=== PATIENT | male | born 1985 | race Caucasian/White ===

== ENCOUNTER 2019-07-14 10:03 | Inpatient (IN) ==
[2019-07-14] MEDS ORDERED: MOTRIN PO PRN (10:10)
[2019-07-14] MEDS ORDERED: LIBRIUM PO PRN (10:10)
[2019-07-14] MEDS ORDERED: IMODIUM PO PRN (10:10)
[2019-07-14] MEDS ORDERED: ZOFRAN IV PRN (10:10)
[2019-07-14] MEDS ORDERED: MAALOX PLUS LIQUID PO PRN (10:10)
[2019-07-14] MEDS ORDERED: ATARAX PO PRN (10:10)
[2019-07-14] MEDS ORDERED: DULCOLAX PR PRN (10:10)
[2019-07-14] MEDS ORDERED: PHENOBARBITAL IV PRN (10:10)
[2019-07-14] MEDS ORDERED: ZOFRAN ODT PO PRN (10:10)
[2019-07-14] MEDS ORDERED: TUBERSOL ID ONE (10:10)
[2019-07-14] MEDS ORDERED: SENOKOT PO PRN (10:10)
[2019-07-14] MEDS ORDERED: SEROQUEL PO PRN (10:10)
[2019-07-14] MEDS ORDERED: ROBAXIN PO PRN (10:10)
[2019-07-14] MEDS ORDERED: SINEMET 25/100 PO PRN (10:10)
[2019-07-14] MEDS ORDERED: BENTYL PO PRN (10:10)
[2019-07-14] MEDS ORDERED: D5W 1,000 ML IV PRN (10:10)
[2019-07-14] MEDS ORDERED: TYLENOL PO PRN (10:10)
[2019-07-14 10:29] LABS: HEMATOCRIT 46.7 % (42.0-52.0); HEMOGLOBIN 15.6 g/dL (14.0-18.0); MCH 29.1 PG (27-31); MCHC 33.4 g/dL (33-37); MPV 10.2 FL (7.4-10.4); RBC 5.37 XMIL (4.7-6.1); RDW 13.7 % (11.5-14.5); WBC 7.73 X1000 (4.8-10.8)
[2019-07-14 10:46] LABS: AGAP 13; ALBUMIN 4.6 g/dL (3.5-5.0); ALKALINE PHOSPHATASE 78 U/L (32-122); BUN 18 mg/dL (8-22); CALCIUM 10.5 mg/dL (8.8-10.2); CHLORIDE 103 mmol/L (98-107); COSMO 278; CREATININE 0.8 mg/dL (0.7-1.2); ESTIMATED GFR > 60; GLUCOSE 108 mg/dL (70-104); GOT 12 U/L (10-34); GPT 11 U/L (10-44); POTASSIUM 4.1 mmol/L (3.5-5.1); SODIUM 138 mmol/L (136-145); TCO2 23 mmol/L (25-35); TOTAL PROTEIN 7.8 g/dL (6.3-8.3)
[2019-07-14 10:50] LABS: INR 0.95; PROTIME 13.2 Seconds (11.0-16.0)
[2019-07-14 10:57] LABS: AMYLASE 35 U/L (20-200); LIPASE 31 U/L (13-60)
[2019-07-14 11:23] LABS: UR AMPHETAMINES QUAL NONE DETECTED (NONE DETECT); UR BARBITUATES QUAL NONE DETECTED (NONE DETECT); UR BENZODIAZEPIN QUAL NONE DETECTED (NONE DETECT); UR CANNABINOIDS QUAL NONE DETECTED (NONE DETECT); UR COCAINE QUAL NONE DETECTED (NONE DETECT); UR METHADONE QUAL NONE DETECTED (NONE DETECT); UR METHAMPHETAMINE QUAL NONE DETECTED (NONE DETECT); UR OPIATES QUAL PRESUMPTIVE POSITIVE (NONE DETECT); UR OXYCODONE QUAL NONE DETECTED (NONE DETECT); UR PCP QUAL NONE DETECTED (NONE DETECT); UR PROPOXYPHENE QUAL NONE DETECTED (NONE DETECT); UR TCA QUAL NONE DETECTED (NONE DETECT)
[2019-07-14 11:39] LABS: BILIRUBIN URINE NEGATIVE (NEGATIVE); BLOOD URINE 1+ (NEGATIVE); CLARITY SL. CLOUDY (CLEAR); COLOR YELLOW; GLUCOSE URINE NEGATIVE (NEGATIVE); KETONE URINE TRACE mg/dL (NEGATIVE); LEUKOCYTES URINE TRACE (NEGATIVE); NITRITE URINE NEGATIVE (NEGATIVE); PH URINE 6.5; PROTEIN URINE TRACE mg/dL (NEGATIVE); UROBILINOGEN URINE 4 mg/dL
[2019-07-14 11:41] LABS: URINE BACTERIA 1+ /HFP; URINE CAST NONE SEEN /LPF; URINE CRYSTAL NONE SEEN /HPF; URINE EPITHELIAL CELLS <10 /HPF (<10); URINE RBC <10 /HPF (<10); URINE SOURCE CLEAN CATCH; URINE WBC <10 /HPF (<10); URINE YEAST PRESENT /HPF
[2019-07-14] MEDS: LIBRIUM PO SCH ×3 (11:44→22:52)
[2019-07-14] MEDS ORDERED: TORADOL IV PRN (13:20)
[2019-07-14] MEDS: NICODERM PATCH TD PRN (17:56)
[2019-07-14] MEDS: DESYREL PO PRN (21:19)
[2019-07-15] MEDS: LIBRIUM PO SCH ×3 (04:59→18:19)
[2019-07-15] MEDS: PROTONIX PO SCH (06:33)
--- NOTE | 2019-07-15 07:34 | HISTORY AND PHYSICAL ---
CHIEF COMPLAINT: Nausea, vomiting. HISTORY OF PRESENT ILLNESS: Patient is a 34-year-old male who presented to [facility] secondary to nausea, vomiting, abdominal pain, myalgias, paresthesias. Notes he has been using opiates. He want s to get his life under control. SOCIAL HISTORY: Patient is unemployed. Lives at home in [place]. PAST MEDICAL HISTORY: No current active medical problems other than chronic anxiety. MEDICATIONS: Klonopin 0.4 b.i.d. ALLERGIES: No known drug allergies. REVIEW OF SYSTEMS: CINA score is elevated at 20 secondary to nausea, vomiting, abdominal pain, yawning, watery eyes, runny nose, frequent cramping, diarrhea, frequent dry heaves, muscle aches, hot and cold temperature changes, frequent changes in sensation on the skin. SUBSTANCE ABUSE HISTORY: The patient was in treatment in 2004 in the [facility] for cocaine, remained sober for years. Notes that substance abuse has caused anxiety as well as financial work problems social problems. He started drinking at 19, currently drinks rarely. Has not drank in 2 months. Started marijuana at 18, has not used in 5 months. Started Klonopin at 22, currently uses only as prescribed. Started cocaine at 17, has not used since he was age 19. Started opiates at 28, currently using [place], as often as he can afford it, heroin IV or snorting. He has been using for the past 2 years. Started smoking at 18, currently smokes a pack a day. FAMILY HISTORY: Noncontributory. PHYSICAL EXAMINATION: VITAL SIGNS: Reviewed. Patient is awake, alert, oriented. He is in no current respiratory distress. He is somewhat ill-appearing due to withdrawal symptoms. HEENT: Normocephalic. NECK: Supple. CARDIOVASCULAR: Regular rate. No murmurs. CHEST: Clear. ABDOMEN: Soft. EXTREMITIES: Moves all extremities. NEUROLOGIC: No focal changes. SKIN: Warm, dry. No rashes. ASSESSMENT: 1. Nausea, vomiting. 2. Abdominal pain. 3. Myalgias. 4. Paresthesias. 5. Paroxysmal sweating. 6. Opiate abuse withdrawal and stabilization. 7. Chronic anxiety. 8. Chronic tobacco abuse. PLAN: Discussed with patient the perils of smoking as well as reasons to stop. Discussed use and abuse, addiction and dependence. We will continue counseling. We will place him in the hospital and use high-dose Librium taper. Further orders as needed. cc: Kenrick Akins MD
[2019-07-15] MEDS: THERA M PLUS PO SCH (08:18)
[2019-07-15] MEDS: VITAMIN B-1 PO SCH (08:18)
[2019-07-15] MEDS: FOLIC ACID PO SCH (08:18)
[2019-07-15] MEDS ORDERED: KLONOPIN PO PRN (08:19)
[2019-07-15 15:29] LABS: UR AMPHETAMINES QUAL NONE DETECTED (NONE DETECT); UR BARBITUATES QUAL NONE DETECTED (NONE DETECT); UR BENZODIAZEPIN QUAL PRESUMPTIVE POSITIVE (NONE DETECT); UR CANNABINOIDS QUAL NONE DETECTED (NONE DETECT); UR COCAINE QUAL NONE DETECTED (NONE DETECT); UR METHADONE QUAL NONE DETECTED (NONE DETECT); UR METHAMPHETAMINE QUAL NONE DETECTED (NONE DETECT); UR OPIATES QUAL NONE DETECTED (NONE DETECT); UR OXYCODONE QUAL NONE DETECTED (NONE DETECT); UR PCP QUAL NONE DETECTED (NONE DETECT); UR PROPOXYPHENE QUAL NONE DETECTED (NONE DETECT); UR TCA QUAL NONE DETECTED (NONE DETECT)
[2019-07-15] MEDS: NICODERM PATCH TD PRN (18:32)
--- NOTE | 2019-07-15 22:30 | PROGRESS NOTE ---
DATE: 07/15/2019 SUBJECTIVE: Patient notes that he is feeling okay. Denies any fevers or chills. Denies chest pain or palpitations. PHYSICAL EXAMINATION: Vital Signs: Reviewed. He is awake, alert. He is in no respiratory distress. HEENT: Normocephalic. Neck: Supple. Cardiovascular: Regular rate. Chest: Clear. Abdomen: Soft. Extremities: Moves all extremities. ASSESSMENT: 1. Nausea and vomiting. 2. Abdominal pain. 3. Myalgias. 4. Paresthesias. 5. Paroxysmal sweating. 6. Insomnia. 7. Opiate abuse withdrawal and stabilization. PLAN: We will continue the patient in the hospital. Continue to follow. Further orders as needed. Continue Librium taper. We will adjust if needed. Further orders as needed. cc: Kenrick Akins MD
[2019-07-15] MEDS: DESYREL PO PRN ×2 (22:32→23:34)
[2019-07-16] MEDS: LIBRIUM PO SCH ×4 (02:46→20:21)
[2019-07-16] MEDS: PROTONIX PO SCH (06:03)
[2019-07-16] MEDS ORDERED: HALDOL IV PRN (08:10)
[2019-07-16] MEDS: FOLIC ACID PO SCH (09:40)
[2019-07-16] MEDS: THERA M PLUS PO SCH (09:40)
[2019-07-16] MEDS: VITAMIN B-1 PO SCH (09:40)
[2019-07-16 11:28] VITALS: BP 111/61
[2019-07-16] MEDS ORDERED: HALDOL IV SCH (21:00)
--- NOTE | 2019-07-17 05:42 | DISCHARGE SUMMARY ---
ADMISSION DATE: 07/14/2019 DISCHARGE DATE: 07/16/2019 DISCHARGE DIAGNOSES: 1. Nausea and vomiting. 2. Abdominal pain. 3. Myalgias. 4. Paresthesias. 5. Paroxysmal sweating. 6. Opiate abuse, withdrawal and stabilization. CONSULTATIONS: None. PROCEDURES: None. BRIEF HOSPITAL COURSE: Patient was admitted to the hospital, treated in the usual fashion. He had intended on weaning totally off of opiates and had declined Suboxone. Placed him on high-dose Librium taper. Continued to follow. He seemed to be getting better. In fact, on discharge he notes that he felt great and was no longer going to stay in the hospital. Stated that he had things he had to do at home. He actually noted that he had called the [facility] and was going to follow up there in 4 days to start Suboxone. DISPOSITION: Discussed with patient that I do not feel as though it is in his best interest to go home as he is still on a higher dose of Librium that we can send him home with. He is on 50 mg q.6 and that is likely the reason that he feels so well. We will decrease him to 25 three times a day as needed until he can follow up with the [facility] to attempt to prevent withdrawal, but discussed with him it is highly likely that all of his withdrawal symptoms will return when he discharges home. However, he is voluntarily here and therefore we cannot force him to stay. cc: Kenrick Akins MD
== END 2019-07-16 20:32 | disposition home or self-care (01) | DRG 897 ==
LOC: P.MEDSURG 10:03
PROVIDERS: ADMIT Family Medicine; ATTEND Family Medicine